=== PATIENT | female | born 1955 | race Two or more races ===

== ENCOUNTER → 2017-12-24 | Emergency (ER) | payer OTHER ==
[~2017-12-24] MED LIST: ARTHROTEC1 UDTAB.E1; CELEBREX200MG; CIPRO500 MG PO; CYMBALTA30 MG; EVISTA60 MG PO; FA-80.8 MG; FLEXERIL10 MG; FOLIC ACID0.4 MG; HUMIRA20 MG/0.4; INDERIDE; KETO10TA2 PO; NEURONTIN300 MG; OSEL75CA PO; RESTORIL30 M1; STRIBILD TABLE1 EACH; TAMS0.4C PO; TUSSI PRES-B L120 M1 PO; VITAL-D RX TABL1 TAB; [UNRECOGNIZED DRUG - OTHER]
== END | disposition home or self-care (01) ==
LOC: ER 08:41
DX: G43.809 Other migraine, not intractable, without status migrainosus (principal)

== ENCOUNTER → 2018-01-01 | Emergency (ER) | payer OTHER ==
[~2018-01-01] VITALS: Ht 154.9 cm; Wt 93.0 kg
[~2018-01-01] MED LIST changes: +INTESTINEX680 M1 PO; +PYRIDIUM100 MG PO; +RELPAX40 MG PO
== END | disposition home or self-care (01) ==
LOC: ER 10:10
DX: G43.909 Migraine, unspecified, not intractable, without status migrainosus (principal); N39.0 Urinary tract infection, site not specified

== ENCOUNTER 2018-01-08 08:43 | Outpatient (CLI) | payer OTHER | END 2018-01-08 08:57 | disposition home or self-care (01) | LOC: NUCLEAR 08:43 | DX: M54.9 Dorsalgia, unspecified (principal); M46.1 Sacroiliitis, not elsewhere classified; M05.79 Rheumatoid arthritis with rheumatoid factor of multiple sites without organ or systems involvement | CPT/HCPCS: 78315; A9503 ==

== ENCOUNTER → 2018-01-22 08:23 | Outpatient (CLI) | payer OTHER | END | disposition home or self-care (01) | LOC: LAB 08:23 | DX: M05.79 Rheumatoid arthritis with rheumatoid factor of multiple sites without organ or systems involvement (principal); E11.9 Type 2 diabetes mellitus without complications ==

== ENCOUNTER 2018-03-14 10:57 | Outpatient (CLI) | payer OTHER | END 2018-03-14 11:03 | disposition home or self-care (01) | LOC: SONOGRAMA 10:57 → MAMO-SONO 11:00 → SONOGRAMA 11:03 | DX: N20.0 Calculus of kidney (principal) ==

== ENCOUNTER 2018-03-17 14:23 | Outpatient (CLI) | payer OTHER ==
[2018-04-18] MEDS ORDERED: VERAPAMIL ER100 MG PO (07:35)
== END 2018-03-17 14:38 | disposition home or self-care (01) ==
LOC: NUCLEAR 14:23
DX: N20.0 Calculus of kidney (principal)
CPT/HCPCS: 78708; A9539; J1940

== ENCOUNTER → 2018-04-18 | Emergency (ER) | payer OTHER ==
[~2018-04-18] VITALS: Ht 154.9 cm; Wt 95.3 kg
[~2018-04-18] MED LIST changes: +VERAPAMIL ER100 MG PO
== END | disposition left against medical advice (07) ==
LOC: ER 07:24
DX: Z53.20 Procedure and treatment not carried out because of patient's decision for unspecified reasons (principal)

== ENCOUNTER 2018-05-28 13:08 | Emergency (ER) | payer OTHER ==
[~2018-05-28] VITALS: Ht 157.5 cm; Wt 96.6 kg
[2018-05-28] MEDS ORDERED: METROGEL60 GM (13:43)
[2018-05-28] MEDS ORDERED: BACTRIM DS TAB1 EACH PO (20:40)
== END 2018-05-28 21:01 | disposition home or self-care (01) ==
LOC: ER 13:08
DX: N13.2 Hydronephrosis with renal and ureteral calculous obstruction (principal); N39.0 Urinary tract infection, site not specified

== ENCOUNTER 2018-06-16 13:08 | Outpatient (CLI) | payer OTHER ==
[~2018-06-16 13:08] MED LIST changes: +BACTRIM DS TAB1 EACH PO; +METROGEL60 GM
== END 2018-06-16 13:21 | disposition home or self-care (01) ==
LOC: RAD 13:08
DX: N20.0 Calculus of kidney (principal)

== ENCOUNTER 2018-07-09 11:05 | Emergency (ER) | payer OTHER ==
[~2018-07-09] VITALS: Ht 154.9 cm; Wt 92.5 kg
[2018-07-09] MEDS ORDERED: PROTONIX40 M1 (11:20)
[2018-07-09] MEDS ORDERED: CLONAZEPAM1 MG (11:20)
[2018-07-09] MEDS ORDERED: CYMBALTA60 MG (11:21)
[2018-07-09] MEDS ORDERED: HUMIRA40 MG/0.2 (11:21)
[2018-07-09] MEDS ORDERED: METHOTREXA25 MG/1 M6 (11:23)
[2018-07-09] MEDS ORDERED: VERAPAMIL ER240 MG (11:24)
== END 2018-07-09 13:43 | disposition home or self-care (01) ==
LOC: ER 11:05
DX: R51 Headache (principal)

== ENCOUNTER 2018-07-13 11:24 | Emergency (ER) | payer OTHER ==
[~2018-07-13] VITALS: Ht 154.9 cm; Wt 94.3 kg
[~2018-07-13 11:24] MED LIST changes: +CLONAZEPAM1 MG; +CYMBALTA60 MG; +HUMIRA40 MG/0.2; +METHOTREXA25 MG/1 M6; +PROTONIX40 M1; +VERAPAMIL ER240 MG
== END 2018-07-13 16:28 | disposition home or self-care (01) ==
LOC: ER 11:24
DX: R51 Headache (principal)

== ENCOUNTER 2018-09-22 11:47 | Outpatient (CLI) | payer OTHER | END 2018-09-22 11:58 | disposition home or self-care (01) | LOC: LAB 11:47 | DX: M05.79 Rheumatoid arthritis with rheumatoid factor of multiple sites without organ or systems involvement (principal); N18.2 Chronic kidney disease, stage 2 (mild); I10 Essential (primary) hypertension ==

== ENCOUNTER 2019-01-21 10:41 | Outpatient (CLI) | payer OTHER | END 2019-01-21 10:52 | disposition home or self-care (01) | LOC: LAB 10:41 | DX: N18.2 Chronic kidney disease, stage 2 (mild) (principal); I10 Essential (primary) hypertension ==

== ENCOUNTER 2019-01-25 14:01 | Outpatient (CLI) | payer OTHER | END 2019-01-25 14:49 | disposition home or self-care (01) | LOC: LAB 14:01 | DX: N20.0 Calculus of kidney (principal) ==

== ENCOUNTER 2019-01-28 10:05 | Outpatient (CLI) | payer OTHER | END 2019-01-28 10:16 | disposition home or self-care (01) | LOC: LAB 10:05 | DX: N20.0 Calculus of kidney (principal) ==

== ENCOUNTER → 2019-05-12 10:18 | Outpatient (CLI) | payer OTHER | END | disposition home or self-care (01) | LOC: LAB 10:18 | DX: I10 Essential (primary) hypertension (principal); M05.79 Rheumatoid arthritis with rheumatoid factor of multiple sites without organ or systems involvement ==

== ENCOUNTER 2023-02-10 10:10 | Emergency (ER) | payer OTHER ==
[~2023-02-10] VITALS: Ht 152.4 cm; Wt 89.8 kg
[2023-02-10] MEDS ORDERED: CLONAZEPAM0.5 MG (11:08)
[2023-02-10] MEDS ORDERED: NEURONTIN600 M1 (11:09)
[2023-02-10] MEDS ORDERED: AMITRIPTYLINE H25 MG PO (11:09)
== END 2023-02-10 14:42 | disposition home or self-care (01) ==
LOC: ER 10:10
DX: M25.551 Pain in right hip (principal); M85.88 Other specified disorders of bone density and structure, other site